=== PATIENT | male | born 1965 | race Hispanic/Latino ===

== ENCOUNTER 2023-06-25 21:58 | Emergency (ER) | payer SELFPAY ==
[~2023-06-25] VITALS: Ht 167.6 cm; Wt 81.6 kg
[2023-06-25 22:08] VITALS: BP 123/85
[2023-06-25 22:15] VITALS: BP 135/84
[2023-06-25] MEDS ORDERED: SODIUM CHLORIDE 0.9% 1,000 ML IV ONE (22:25)
[2023-06-25 22:30] VITALS: BP 120/75
[2023-06-25 22:30] LABS: BASO% 0.3 % (0-3); HEMATOCRIT 42.1 % (39.0-50.0); HEMOGLOBIN 14.4 g/dl (14.0-18.0); LYMPH% 60.8 % (15-41); MEAN CELL VOLUME 96.1 fL CALC (80.0-100.0); MEAN CORPUSCULAR HGB 32.9 pG CALC (26.0-32.0); MEAN CORPUSCULAR HGB CONC 34.2 g/dL CAL (32.0-36.0); MONO% 6.4 % (2-13); NEUT# 1.95 thou/uL (1.82-7.42); NEUT% 30.5 % (42-76); RED BLOOD COUNT 4.38 mill/uL (4.70-6.10); RED CELL DISTRI WIDTH 12.4 % (11.5-15.5)
[2023-06-25 23:21] LABS: ALBUMIN 4.7 g/dL (3.2-5.0); ALKALINE PHOSPHATASE 85 u/l (38-126); ANION GAP 21 (6-22 (CALC)); BILIRUBIN, TOTAL 0.4 mg/dL (0.2-1.3); BUN 9 mg/dL (9-20); BUN/CREATININE RATIO 12 (12-20 (CALC)); CARBON DIOXIDE 20 mmol/l (22-30); CHLORIDE 104 mmol/l (95-108); CREATININE 0.8 mg/dL (0.7-1.3); GFR FOR AFR.AMER. > 60 ML/MIN (>=60 (CALC)); GFR OTHER RACES > 60 ML/MIN (>=60 (CALC)); POTASSIUM 4.1 mmol/l (3.5-5.1); SGOT/AST 134 u/l (17-59); SODIUM 141 mmol/l (137-146); TOTAL PROTEIN 8.2 g/dL (6.3-8.2)
[2023-06-25 23:28] VITALS: BP 89/52
[2023-06-25 23:29] VITALS: BP 87/43
[2023-06-25 23:35] LABS: ETHYL ALCOHOL 376 mg/dl (0-30)
[2023-06-25 23:45] VITALS: BP 114/68
[2023-06-26] VITALS (28 sets, daily range): BP systolic 91–169; BP diastolic 52–107
[2023-06-26] MEDS ORDERED: SODIUM CHLORIDE 0.9% 1,000 ML IV ONE (02:50)
== END 2023-06-26 11:34 | disposition home or self-care (01) | DRG 897 ==
LOC: ED 21:58
PROVIDERS: Family Medicine
DX: F10.129 Alcohol abuse with intoxication, unspecified (principal); Y90.8 Blood alcohol level of 240 mg/100 ml or more; S09.90XA Unspecified injury of head, initial encounter; W19.XXXA Unspecified fall, initial encounter